=== PATIENT | female | born 1950 | race Caucasian/White ===

== ENCOUNTER → 2016-07-27 | Outpatient (CLI) | payer MEDICARE, BC ==
[~2016-07-27] VITALS: Ht 162.6 cm; Wt 74.8 kg
[~2016-07-27] MED LIST: SINCALIDE 1.5 MCG in IV NORMAL SALINE 50ML 30 ML IV ONE
--- NOTE | 2016-07-27 11:01 | RAD ---
Radionuclide hepatobiliary scan with gallbladder ejection fraction, 07/27/2016: History: Nausea, chest pain Following IV injection of 5.5 mCi of technetium 99m Choletec there was prompt uptake of the radionuclide from the blood stream by the liver. Bile duct, gallbladder and small bowel activity developed at 20 minutes. Additional imaging was performed following IV injection of 1.5 mcg of cholecystokinin. The gallbladder ejection fraction was calculated at 78%. IMPRESSION: 1. No evidence of cystic duct or common bile duct obstruction. 2. The gallbladder ejection fraction is 78%.
== END | disposition home or self-care (01) ==
LOC: NM 07:55
PROVIDERS: ATTEND Family Medicine
DX: R10.11 Right upper quadrant pain (principal); M16.11 Unilateral primary osteoarthritis, right hip
CPT/HCPCS: 78226; 96374; A9537

== ENCOUNTER → 2016-10-18 | Outpatient (CLI) | payer MEDICARE, BC ==
--- NOTE | 2016-10-18 10:51 | RAD ---
EXAM: Nuclear gastric emptying scan. HISTORY: Nausea/vomiting. Weight loss. Gastric pain. COMPARISON: None. TECHNIQUE: Serial static images were obtained over the stomach following oral administration of 2 mCi of 99m-Tc sulfur colloid in an egg based meal. FINDINGS: The stomach appears normal in contour. There is clearance of activity into the small bowel. Gastric emptying half-time is 181 minutes (normal <90 minutes). Refer to the worksheets for more detail. IMPRESSION: 1. Delayed gastric emptying with half-time 181 minutes.
== END ==
LOC: NM 07:25
PROVIDERS: ATTEND Internal Medicine Gastroenterology
DX: K30 Functional dyspepsia (principal); R63.4 Abnormal weight loss
CPT/HCPCS: 78264; A9541

== ENCOUNTER 2019-05-21 07:49 | Outpatient (CLI) | payer MEDICARE, BC ==
[~2019-05-21] VITALS: Ht 162.6 cm; Wt 81.2 kg
[~2019-05-21 07:49] MED LIST changes: -BUPR300T92 PO; -DIAZ5TAB4 PO; -DICL75TA PO; -DULO60CA6 PO; -EZET10TA20 PO; -FURO20TA3 PO; +HYDROmorphone 2 MG/ML VIAL IV PRN; +IV RINGERS,LACTATED 1000ML 1,000 ML IV SCH; -KETAMINE HCL IN NACL, ISO-OSM 50 MG/5 ML SYRINGE ONE; -LIDOCAINE 2% PF 5 ML VIAL. ONE; -MIDAZOLAM HCL/PF 2 MG/2 ML VIAL. ONE; +MORPHINE SULFATE 2 MG/ML VIAL. IV PRN; +ONDANSETRON PF 4 MG/2 ML VIAL. IV PRN; -ONDANSETRON PF 4 MG/2 ML VIAL. ONE; -PHENYLEPHRINE in 0.9% NACL PF 1 MG/10 ML SYRINGE. IV ONE; -PRAV80TA2 PO; +PROCHLORPERAZINE 10 MG/2 ML VIAL. IV PRN; -PROPOFOL 20 ML IV ONE; -ePHEDrine PF IN SALINE 50 MG/10 ML SYRINGE. IV ONE; +fentaNYL PF VIAL 100 MCG/2 ML VIAL IV PRN
[2019-05-21 08:24] LABS: BASO # 0.1 x10^3/uL (0.0-0.2); BASO % 1 % (0-3); EOS # 0.1 x10^3/uL (0.0-0.7); EOS % 2 % (0-3); HEMATOCRIT 43.6 % (36.0-47.0); HEMOGLOBIN 14.6 g/dL (12.0-15.5); LYMPH # 1.2 x10^3/uL (1.0-4.8); LYMPH % 19 % (24-48); MEAN CORPUSCULAR HEMOGLOBIN 30 pg (25-35); MEAN CORPUSCULAR HGB CONC 33 g/dL (31-37); MEAN CORPUSCULAR VOLUME 89 fL (79-100); MONO # 0.5 x10^3/uL (0.0-1.1); MONO % 7 % (0-9); NEUT # 4.5 x10^3/uL (1.8-7.7); NEUT % 70 % (31-73); PLATELET COUNT 276 x10^3/uL (140-400); RED CELL DISTRIBUTION WIDTH 13.7 % (11.5-14.5); WHITE BLOOD COUNT 6.4 x10^3/uL (4.0-11.0)
[2019-05-21 08:37] LABS: PROTHROMBIN TIME PATIENT 12.3 SEC (11.7-14.0)
[2019-05-21] MEDS ORDERED: LIDOCAINE WITH 8.4% SOD BICARB 3 ML DISP.SYRIN. ONE (09:31)
[2019-05-21] MEDS ORDERED: BUPR300T92 PO (09:34)
[2019-05-21] MEDS ORDERED: DIAZ5TAB4 PO (09:34)
[2019-05-21] MEDS ORDERED: EZET10TA20 PO (09:34)
[2019-05-21] MEDS ORDERED: DICL75TA PO (09:34)
[2019-05-21] MEDS ORDERED: PRAV80TA2 PO (09:34)
[2019-05-21] MEDS ORDERED: DULO60CA6 PO (09:34)
[2019-05-21] MEDS ORDERED: FURO20TA3 PO (09:34)
[2019-05-21 09:45] VITALS: BP 134/82
--- NOTE | 2019-05-21 10:04 | NUR ---
Pt to IR for bone marrow biopsy, anesthesia here to monitor and sedate patient due to hx and allergy to narcotics. VSS throughout. KELSEY RN
[2019-05-21 10:23] VITALS: BP 136/79
[2019-05-21] MEDS ORDERED: LIDOCAINE WITH 8.4% SOD BICARB 3 ML DISP.SYRIN. INJ ONE (10:30)
--- NOTE | 2019-05-21 10:47 | PDOC ---
MODERATE SEDATION ASSESSMENT RISKS/ALTERNATIVES Risks/Alternatives Risks and alternatives of this type of sedation and procedure discussed with: RISK/ALTERNATIVES: Patient H & P ON CHART H & P H & P on chart and reviewed for co-morbid conditions and appropriate labs. H&P ON CHART: Yes STATUS PREG STATUS ASSESSED: Yes MEDS/ALLERGIES REVIEWED Meds/Allergies Reviewed Medications and Allergies including time and route of recently administered narcotics and sedatives. MEDS/ALLERGIES REVIEWED: Yes ASA RATING ASA RATING: II AIRWAY ASSESSMENT Airway Assessment Airway patency, oral function limitations, presence of caps, crowns, dentures, partials, and ability to extend neck assessed. AIRWAY ASSESSMENT: Yes MALLAMPATI SCORE MALLAMPATI SCORE: II PRE-SEDATION ASSESSMENT PRE-SEDATION ASSESSMENT: Yes DAT MAJANO MD May 21, 2019 10:47
--- NOTE | 2019-05-21 10:49 | PDOC ---
BRIEF OPERATIVE NOTE Pre-Op Diagnosis ALS Post-Op Diagnosis same Procedure Performed CT Bone Marrow Biopsy Surgeon Tanmay Anesthesia Type: MAC Specimens Obtained 2 x 3 cc aspirates and 1 x 10g core Findings CT Bone Marrow Biopsy Complications No immediate DAT MAJANO MD May 21, 2019 10:49
[2019-05-21 11:25] VITALS: BP 130/73
--- NOTE | 2019-05-21 15:07 | RAD ---
Procedure: CT-guided bone marrow aspiration and biopsy Clinical Indication: Adult female with paraproteinemia Sedation: Mac anesthesia administered by the anesthesia department Antibiotics: None Fluoro Time: Not applicable Contrast: None Sterility: The procedure was performed in its entirety using appropriate elements of sterile technique. Consent: The procedure was explained in its entirety to the patient or the patients designated retail representative by a member of the treatment team, including a discussion of the risks, benefits and commonly accepted alternatives to the procedure, as well as the expected consequences of no therapy whatsoever. Discussion of the risks included, but was not limited to, those that are most frequent and those that are rare but possibly severe or life-threatening, as well as the possibility of unforeseen complications. Technique and Findings: Following informed consent, the patient was prepped and draped in usual sterile fashion. Preliminary CT scan of the area of interest was performed. 1% Lidocaine was used to achieve local anesthesia. Under periodic CT surveillance, an 11-gauge needle was advanced through the cortex of the posterior superior iliac spine and 2 separate 2 mL marrow aspirates were obtained and preserved on site by the physician's assistant. A single 11-gauge core biopsy specimen was then obtained and preserved in formalin. The needle was then removed and hemostasis was achieved with manual compression. Complications: No immediate Impression: 1. CT-guided bone marrow aspiration and biopsy as described PQRS Compliance Statement: One or more of the following individualized dose reduction techniques were utilized for this examination: 1. Automated exposure control 2. Adjustment of the mA and/or kV according to patient size 3. Use of iterative reconstruction technique
== END 2019-05-21 12:02 | disposition home or self-care (01) ==
LOC: INTRAD 07:49
PROVIDERS: ATTEND Internal Medicine Hematology & Oncology
DX: D89.2 Hypergammaglobulinemia, unspecified (principal)
CPT/HCPCS: 36415; 38222; 77012; 85025; 85610; 88184; 88185; 88237

== ENCOUNTER → 2019-05-21 | Outpatient (CLI) | payer MEDICARE, BC ==
[~2019-05-21] MED LIST changes: +BUPR300T92 PO; +DIAZ5TAB4 PO; +DICL75TA PO; +DULO60CA6 PO; +EZET10TA20 PO; +FURO20TA3 PO; +KETAMINE HCL IN NACL, ISO-OSM 50 MG/5 ML SYRINGE ONE; +LIDOCAINE 2% PF 5 ML VIAL. ONE; +MIDAZOLAM HCL/PF 2 MG/2 ML VIAL. ONE; +ONDANSETRON PF 4 MG/2 ML VIAL. ONE; +PHENYLEPHRINE in 0.9% NACL PF 1 MG/10 ML SYRINGE. IV ONE; +PRAV80TA2 PO; +PROPOFOL 20 ML IV ONE; -SINCALIDE 1.5 MCG in IV NORMAL SALINE 50ML 30 ML IV ONE; +ePHEDrine PF IN SALINE 50 MG/10 ML SYRINGE. IV ONE
== END | disposition home or self-care (01) ==
LOC: NM 07:50
PROVIDERS: ATTEND Internal Medicine Hematology & Oncology
DX: D89.2 Hypergammaglobulinemia, unspecified (principal)
CPT/HCPCS: 38222; J0171; J2001; J2250; J2370; J2405; J2704

== ENCOUNTER 2021-02-20 08:51 | Outpatient (CLI) | payer BC, MEDICARE, OTHER ==
[~2021-02-20] VITALS: Ht 152.4 cm; Wt 68.0 kg
[~2021-02-20 08:51] MED LIST changes: +BUPR300T92 PO; +DIAZ5TAB4 PO; +DICL75TA PO; +DULO60CA7 PO; +EZET10TA20 PO; +FURO20TA3 PO; -HYDROmorphone 2 MG/ML VIAL IV PRN; -IV RINGERS,LACTATED 1000ML 1,000 ML IV SCH; -MORPHINE SULFATE 2 MG/ML VIAL. IV PRN; -ONDANSETRON PF 4 MG/2 ML VIAL. IV PRN; +PRAV80TA2 PO; -PROCHLORPERAZINE 10 MG/2 ML VIAL. IV PRN; -fentaNYL PF VIAL 100 MCG/2 ML VIAL IV PRN
[2021-02-20 09:07] VITALS: BP 141/73
[2021-02-20] MEDS ORDERED: IOHEXOL 240 MG/ML 50ML VIAL. ONE (09:08)
[2021-02-20] MEDS ORDERED: SENN8.8S13 PO (09:34)
[2021-02-20] MEDS ORDERED: NAPR-600 PO (09:34)
[2021-02-20] MEDS ORDERED: CEPH500C PO (09:34)
[2021-02-20] MEDS ORDERED: LORA2ORA2 PO (09:34)
[2021-02-20] MEDS ORDERED: BUPR100T7 PO (09:34)
[2021-02-20] MEDS ORDERED: POLY17PO29 PO (09:34)
[2021-02-20] MEDS ORDERED: CHOL1LIQ MC (09:34)
[2021-02-20] MEDS ORDERED: ARIP2TAB3 PO (09:34)
[2021-02-20] MEDS ORDERED: DIAZ5TAB4 PO (09:34)
[2021-02-20] MEDS ORDERED: [UNRECOGNIZED DRUG - CODE] TP (09:34)
[2021-02-20] MEDS ORDERED: CYAN10002 IM (09:34)
[2021-02-20] MEDS ORDERED: MOR20SL SL (09:34)
[2021-02-20] MEDS ORDERED: VENL75TA PO (09:34)
[2021-02-20] MEDS ORDERED: ATRO2DRO3 EACHEYE (09:34)
--- NOTE | 2021-02-20 10:07 | NUR ---
Pt to IR for G tube replacement, GI tube site clean and intact prior to replacement. New 18fr G tube placed without difficulty. Pt tolerated without difficulty. KELSEY RN
[2021-02-20] MEDS ORDERED: IOHEXOL 240 MG/ML 50ML VIAL. PO ONE (10:15)
[2021-02-20 10:17] VITALS: BP 149/91
--- NOTE | 2021-02-20 11:00 | NUR ---
Discharge Note: RITA KAY Discharge instructions and discharge home medications reviewed with Other facility and a copy given. All questions have been answered and understanding verbalized. Spoke to Mariaa at [facility], [facility] Transport to return pt to [facility] called and was updated on procedure and outcome. New 18fr G tube in place to L upper abdomen, skin dry and intact. Patient discharged to Hospice with Ambulance Personnel via Wheelchair KELSEY LYLES
--- NOTE | 2021-02-20 12:56 | RAD ---
Replacement of gastrostomy tube with fluoroscopic guidance 02/20/2021 INDICATION: Routine exchange Discussion: Fluoroscopic evaluation demonstrates pre-existing gastrostomy tube to extend to the expec brenden region of the distal stomach. Catheter was removed over wire and replaced with a new 18 Wol[place] ga strostomy tube. Contrast was administered confirming catheter tip in the distal stomach. Contrast emp tied small bowel noted. Catheter secured in place. Sterile dressings were applied. Total fluoroscopy time: 1.5 minutes Dose area product 5 Frey centimeter squared IMPRESSION: Routine exchange, percutaneous gastrostomy tube Electronically signed by: Diego Ocampo MD (02/20/2021 12:53 PM) [id number]
== END 2021-02-20 11:00 | disposition home or self-care (01) ==
LOC: INTRAD 08:51
PROVIDERS: ATTEND Family Medicine
DX: Z43.1 Encounter for attention to gastrostomy (principal); R13.10 Dysphagia, unspecified; K59.00 Constipation, unspecified; M81.0 Age-related osteoporosis without current pathological fracture; F31.32 Bipolar disorder, current episode depressed, moderate; F41.9 Anxiety disorder, unspecified; E78.00 Pure hypercholesterolemia, unspecified; Z85.3 Personal history of malignant neoplasm of breast; Z87.891 Personal history of nicotine dependence; Z79.899 Other long term (current) drug therapy; Z98.890 Other specified postprocedural states; Z88.0 Allergy status to penicillin; Z88.8 Allergy status to other drugs, medicaments and biological substances
CPT/HCPCS: 49450; B4087; C1769; Q9966

== ENCOUNTER 2021-05-21 18:16 | Emergency (ER) | payer OTHER ==
[~2021-05-21] VITALS: Ht 160 cm; Wt 68.0 kg
[~2021-05-21 18:16] MED LIST changes: +ARIP2TAB3 PO; +ATRO2DRO3 EACHEYE; +BUPR100T7 PO; +CEPH500C PO; +CHOL1LIQ MC; +CYAN10002 IM; +LORA2ORA2 PO; +MOR20SL SL; +NAPR-600 PO; +POLY17PO29 PO; +SENN8.8S13 PO; +VENL75TA PO; +[UNRECOGNIZED DRUG - CODE] TP
--- NOTE | 2021-05-21 18:47 | PHYS DOC ---
Past Medical History Past Medical History: Anxiety, Bipolar, Cancer (breast cancer), Depression, High Cholesterol, Other (Dysphagia with feeding tube) Smoking Status: Former Smoker General Adult EDM: Chief Complaint: GTUBE REPLACEMENT/MALFUNCTION HPI: HPI: Patient is a 70 year old female with a history of ALS, nonverbal, dysphagia with a feeding tube, hyperlipidemia, depression, anxiety, bipolar, presented to the ED today for feeding tube replacement. Per longterm staff patient's feeding tube came out this evening. Review of Systems: Review of Systems: Constitutional: Unable to assess patient is nonverbal GI: Visit for feeding tube replacement Musculoskeletal: Denies back pain or joint pain. [] Neurologic: Unable to assess patient is nonverbal Heart Score: C/O Chest Pain: N/A Risk Factors: Risk Factors: DM, Current or recent (<one month) smoker, HTN, HLP, family history of CAD, obesity. Risk Scores: Score 0 - 3: 2.5% MACE over next 6 weeks - Discharge Home Score 4 - 6: 20.3% MACE over next 6 weeks - Admit for Clinical Observation Score 7 - 10: 72.7% MACE over next 6 weeks - Early Invasive Strategies Allergies: Allergies: Allergies Coded Allergies Type Severity Reaction Last Updated Verified Penicillins Allergy Intermediate pt can't remember except it made her sick 05/22/19 Yes Uncoded Allergies Type Severity Reaction Last Updated Verified narcotics Allergy Severe 07/27/16 Physical Exam: PE: Constitutional: Well developed, well nourished, no acute distress, non-toxic appearance. [] Abdomen: Mid abdomen feeding tube site is clean, no signs of infection, bowel sounds normal, soft, no tenderness, no masses, no pulsatile masses. [] Skin: Warm, dry, no erythema, no rash. [] Back: No tenderness, no CVA tenderness. [] Extremities: Patient is contracted upper and lower extremities Neurologic: Alert and oriented X 1-baseline, normal motor function, normal sensory function, no focal deficits noted. [] Psychologic: Flat affect EKG: EKG: [] Radiology/Procedures: Radiology/Procedures: Unable to obtain consent from this patient, she is nonverbal. Feeding tube site was cleaned with chlorhexidine, 18 Bel[place]ian G tube was inflated to ensure its balloon works. Lubricant was applied to feeding tube tip, the feeding tube was inserted into the abdomen successfully with notable gastric content in the tube. The balloon was inflated with 20 cc of normal saline. Feeding tube was taped in place. Confirmation KUB was done PROCEDURE: KUB XR ABDOMEN 1V Clinical Indication: Reason: peg tube replacement 40 CC Omnipaque was injected Comparison: None. Findings: Contrast opacifies gastrostomy tubing and the stomach. No extravasation is seen to suggest leak. Contrast has not entered the duodenum. There is prominent colon stool volume. IMPRESSION: 1. Gastrostomy tube is in the stomach. 2. Prominent colon stool. Correlate for constipation. Electronically signed by: Vidal Painter MD (05/21/2021 7:53 PM) [facility] DICTATED and SIGNED BY: VIDAL PAINTER MD DATE: 05/21/21 [id number] Course & Med Decision Making: Course & Med Decision Making Pertinent Labs and Imaging studies reviewed. (See chart for details) This a 70-year-old female patient presented to the ED today for feeding tube replacement. Feeding tube was replaced by me in the ED. KUB was done to confirm placement of feeding tube. Patient also noted for constipation in KUB. Discharged back to the longterm. Dragon Disclaimer: Dragon Disclaimer: This electronic medical record was generated, in whole or in part, using a voice recognition dictation system. Departure Departure Impression: Primary Impression: Encounter for gastrojejunal tube placement Additional Impression: Constipation Qualified Codes: K59.00 - Constipation, unspecified Disposition: HOME / SELF CARE / HOMELESS Condition: STABLE Referrals: TIFFANI TOLENTINO MD (PCP) follow up next week Patient Instructions: Care of a Feeding Tube, [id number], Constipation, Adult Additional Instructions: Lizzie'jimi feeding tube was replaced successfully. She was noted to be constipated on x-ray. Ensure she is getting constipation medicine TERESA DIEHL FACTORY MAINTENANCE MANAGER May 21, 2021 18:47
[2021-05-21] MEDS ORDERED: IOHEXOL 240 MG/ML 50ML VIAL. IT ONE (19:15)
--- NOTE | 2021-05-21 19:55 | RAD ---
XR ABDOMEN 1V Clinical Indication: Reason: peg tube replacement 40 CC Omnipaque was injected Comparison: None. Findings: Contrast opacifies gastrostomy tubing and the stomach. No extravasation is seen to suggest leak. Cont rast has not entered the duodenum. There is prominent colon stool volume. IMPRESSION: 1. Gastrostomy tube is in the stomach. 2. Prominent colon stool. Correlate for constipation. Electronically signed by: Vidal Villafana MD (05/21/2021 7:53 PM) [facility]
[2021-05-21 20:54] VITALS: BP 121/66
== END 2021-05-21 21:10 | disposition home or self-care (01) ==
LOC: ER 18:16
DX: K94.23 Gastrostomy malfunction (principal); F31.9 Bipolar disorder, unspecified; E78.00 Pure hypercholesterolemia, unspecified; Z87.891 Personal history of nicotine dependence; Z88.0 Allergy status to penicillin; Z88.5 Allergy status to narcotic agent; Y83.3 Surgical operation with formation of external stoma as the cause of abnormal reaction of the patient, or of later complication, without mention of misadventure at the time of the procedure; Y92.89 Other specified places as the place of occurrence of the external cause
CPT/HCPCS: 43762; 74018; 99285; Q9966